=== PATIENT | female | born 1985 | race African-American/Black ===

== ENCOUNTER 2018-12-06 20:16 | Emergency (ER) | payer MEDICAID, OTHER ==
[~2018-12-06] VITALS: Ht 167.6 cm; Wt 75.0 kg
[2018-12-06] MEDS ORDERED: SODIUM CHLORIDE 0.9% 1,000 ML IV ONE (21:15)
[2018-12-06] MEDS ORDERED: AMLODIPINE 5MG TABLET PO ONE (21:15)
[2018-12-06 21:30] LABS: BASOPHILS % 0.5 % (0.0-2.0); EOSINOPHILS % 1.4 % (0.0-5.0); HEMATOCRIT. 36.1 % (36.0-48.0); HEMOGLOBIN. 11.5 g/dL (12.0-16.0); LYMPHOCYTES % 7.9 % (20.0-50.0); MEAN CORPUSCULAR HEMOGLOBIN 24.4 pg (28.0-32.0); MEAN CORPUSCULAR VOLUME 76.5 fL (81.0-99.0); NEUTROPHILS % 83.2 % (40.0-76.0); PLATELET 227 x1000/uL (130-400); RED BLOOD CELL COUNT 4.73 mill/uL (4.2-5.4); RED CELL DISTRIBUTION WIDTH 16.1 % (11.6-14.6)
[2018-12-06 21:39] LABS: CHLORIDE 111 mEq/L (98-107)
[2018-12-07 08:19] LABS: CLARITY URINE TURBID (CLEAR); COLOR URINE YELLOW (YELLOW); KETONES URINE TRACE (NEGATIVE); LEUKOCYTE ESTERASE URINE 2+ (NEGATIVE); NITRITE URINE NEGATIVE (NEGATIVE); OCCULT BLOOD URINE NEGATIVE (NEGATIVE); PH URINE 5.5 (4.5-8.0); PROTEIN URINE TRACE (NEGATIVE); SPECIFIC GRAVITY URINE 1.026 (1.005-1.030)
[2018-12-07 08:53] LABS: *AMPHETAMINES SCREEN URINE NEGATIVE (NEGATIVE); *BARBITURATES SCREEN URINE NEGATIVE (NEGATIVE)
[2018-12-07 08:54] LABS: METHADONE URINE SCREEN NEGATIVE (NEGATIVE); OPIATES URINE SCREEN NEGATIVE (NEGATIVE)
[2018-12-07 08:56] LABS: *BENZODIAZEPINES SCREEN URINE PRESUMTIVE POSITIVE (NEGATIVE); *COCAINE SCREEN URINE PRESUMTIVE POSITIVE (NEGATIVE); PHENCYCLIDINE URINE SCREEN PRESUMTIVE POSITIVE (NEGATIVE)
[2018-12-07 08:57] LABS: CANNABINOID URINE SCREEN PRESUMTIVE POSITIVE (NEGATIVE)
[2018-12-07 10:25] VITALS: BP 120/77
== END 2018-12-07 10:32 | disposition home or self-care (01) ==
LOC: ER 20:16
DX: T40.991A Poisoning by other psychodysleptics [hallucinogens], accidental (unintentional), initial encounter (principal); F32.9 Major depressive disorder, single episode, unspecified; F17.200 Nicotine dependence, unspecified, uncomplicated; F19.10 Other psychoactive substance abuse, uncomplicated; M79.642 Pain in left hand; M79.641 Pain in right hand; M79.605 Pain in left leg; M79.604 Pain in right leg; R07.9 Chest pain, unspecified; Y92.89 Other specified places as the place of occurrence of the external cause
CPT/HCPCS: 36415; 71045; 80053; 80305; 81003; 83880; 84484; 85025; 87086; 93005; 99284; J7030

== ENCOUNTER 2021-04-01 22:21 | Emergency (ER) | payer OTHER ==
[~2021-04-01] VITALS: Ht 165.1 cm; Wt 82.0 kg
[2021-04-02] MEDS ORDERED: ACETAMINOPHEN 500MG TABLET PO ONE (00:15)
[2021-04-02 02:48] LABS: CHLORIDE 107 mEq/L (98-107)
[2021-04-02 02:55] LABS: HEMOGLOBIN. 12.6 g/dL (12.0-16.0); MEAN CORPUSCULAR HEMOGLOBIN 23.5 pg (28.0-32.0); MEAN CORPUSCULAR VOLUME 80.6 fL (81.0-99.0); MEAN PLATELET VOLUME 8.3 fl (7.4-10.4); PLATELET 246 x1000/uL (130-400); RED BLOOD CELL COUNT 5.34 mill/uL (4.2-5.4); RED CELL DISTRIBUTION WIDTH 16.7 % (11.6-14.6)
[2021-04-02] MEDS ORDERED: PIPERACILLIN/TAZ 3.375G PREMIX 50 ML IV ONE (03:00)
[2021-04-02] MEDS ORDERED: VANCOMYCIN 1 G PREMIX 200 ML IV ONE (03:00)
[2021-04-02] MEDS ORDERED: SODIUM CHLORIDE 0.9% 1000ML BAG (SEPSIS BOLUS) IV ONE (03:00)
[2021-04-02 04:03] LABS: HCG SCREEN NEGATIVE
[2021-04-02] MEDS ORDERED: KETOROLAC 30MG/ML VIAL IV ONE (05:15)
[2021-04-02] MEDS ORDERED: LORAZEPAM 2MG/ML CPJ IV ONE (05:15)
[2021-04-02 05:42] LABS: PLATELET ESTIMATE NORMAL
[2021-04-02 13:36] LABS: CLARITY URINE CLOUDY (CLEAR); COLOR URINE YELLOW (YELLOW); KETONES URINE 1+ (NEGATIVE); LEUKOCYTE ESTERASE URINE 2+ (NEGATIVE); NITRITE URINE NEGATIVE (NEGATIVE); OCCULT BLOOD URINE NEGATIVE (NEGATIVE); PH URINE 5.5 (4.5-8.0); PROTEIN URINE TRACE (NEGATIVE); SPECIFIC GRAVITY URINE 1.035 (1.005-1.030)
[2021-04-02 14:52] LABS: *BARBITURATES SCREEN URINE NEGATIVE (NEGATIVE)
[2021-04-02 14:53] LABS: *AMPHETAMINES SCREEN URINE NEGATIVE (NEGATIVE); *BENZODIAZEPINES SCREEN URINE NEGATIVE (NEGATIVE); METHADONE URINE SCREEN NEGATIVE (NEGATIVE); OPIATES URINE SCREEN NEGATIVE (NEGATIVE)
[2021-04-02 14:58] LABS: *COCAINE SCREEN URINE PRESUMTIVE POSITIVE (NEGATIVE); CANNABINOID URINE SCREEN PRESUMTIVE POSITIVE (NEGATIVE); PHENCYCLIDINE URINE SCREEN PRESUMTIVE POSITIVE (NEGATIVE)
[2021-04-03] VITALS: BP 122/62
== END 2021-04-03 00:25 | disposition left against medical advice (07) ==
LOC: ER 22:21 → CANBEDREQ 04-03 02:16
DX: L03.116 Cellulitis of left lower limb (principal); F16.10 Hallucinogen abuse, uncomplicated; F14.10 Cocaine abuse, uncomplicated; F12.10 Cannabis abuse, uncomplicated; F13.10 Sedative, hypnotic or anxiolytic abuse, uncomplicated; Z20.822 Contact with and (suspected) exposure to COVID-19; Z75.1 Person awaiting admission to adequate facility elsewhere
CPT/HCPCS: 71045; 93970; 96365; 96367; 96375; 99285; J1885; J2060; J2543; J3370; J7030